=== PATIENT | female | born 1995 | race Caucasian/White ===

== ENCOUNTER 2020-11-13 19:57 | Emergency (ER) | payer OTHER, SELFPAY ==
[2020-11-13 20:04] VITALS: BP 142/92; PULSE 84; RESP 20; TEMP 36.7; O2SAT 100; BMI 22.4
[2020-11-13 20:10] VITALS: BP 134/72; PULSE 80; RESP 16; O2SAT 96
--- NOTE | 2020-11-13 20:10 | ECG_ITS ---
[facility] Test Date: 2020-11-13 Pat Name: Allyssa Benavidez Department: Room: Gender: Female Circle Beveler: : 1995 Requested By: Shobha Mabry Order Number: [id number] Alaina MD: Clarita Delvalle M.D. Measurements Intervals [place] Rate: 80 P: 73 MN: 141 QRS: 77 QRSD: 89 T: 55 QT: 373 QTc: 432 Interpretive Statements SINUS RHYTHM WITH SINUS ARRHYTHMIA MINIMAL VOLTAGE CRITERIA FOR LVH, CONSIDER NORMAL VARIANT [MEETS CRITERIA IN ONE OF: R(aVL), S(V1), R(V5), R(V5/V6)+S(V1)] INTERPRETATION BASED ON A DEFAULT AGE OF 40 YEARS No previous ECG available for comparison Electronically Signed On 11-14-2020 18:15:45 CDT by Clarita Delvalle M.D. [email or web address]
--- NOTE | 2020-11-13 20:10 | XR_ITS ---
WS: [id number] Exam: XR chest 1V portable [id number] Date/Time of Exam: 11/13/2020 8:21 PM Reason For Exam: cp No priors. The lungs are fully expanded. No infiltrates or pleural effusions. Normal cardiomediastinal structure s and bony elements. 1 cm soft tissue nodule projects over the left lower lung zone and probably repr esents a nipple shadow. A pulmonary nodule is not completely ruled out. Recommendations: Nonemergent repeat study with metallic nipple markers in place should be considered for follow-up. XR/XR chest 1V portable [id number] IMPRESSION: 1. 1 cm soft tissue nodule projects over the left lower lung zone most likely r epresents a nipple shadow however a pulmonary nodule could have similar appeara nce. Remaining aspects the chest are normal.
--- NOTE | 2020-11-13 20:25 | ED_ITS ---
HPI - Chest Pain General: Chief Complaint: Chest Pain Stated Complaint: CP/SOB Time Seen by Provider: 11/13/20 20:10 Source: patient Mode of arrival: ambulatory Limitations: no limitations History of Present Illness: HPI narrative: 25-year-old female states she been having episodic chest pain along with epigastric pain over the last 1 to 2 months. States that the same thing a year ago and had a HIDA scan that showed that her gallbladder was not functioning correctly. Patient states tonight she ate and then immediately started having epigastric pain that radiated to her ch est and back. She denies any vomiting. She states her pain has since improved. She denies any shortness of breath. Associated symptoms: Deny abdominal pain, dyspnea, fever(s), nausea or vomiting Review of Systems Const: Denies: fever(s), chills, body aches or change in appetite Eyes: Denies: blurry vision or eye discomfort ENMT: Denies: throat pain or dental pain Card: Reports: chest pain Resp: Denies: dyspnea GI: Denies: abdominal pain, nausea, vomiting or diarrhea : Denies: dysuria Musc: Denies: neck pain or back pain Skin/Breast: Denies: rash Neuro: Denies: headache(s) Psych: Denies: depression Beto/Lymph: Denies: easy bruising All/Imm: Denies: urticaria [facility] Female Reproductive History: Date of last menstrual period: 11/07/20 Physical Exam Const: COMMON NORMALS: no acute distress, patient oriented x3 and healthy appearing HENMT: COMMON NORMALS: normocephalic and atraumatic HEAD & SCALP: normocephalic and atraumatic Eye: COMMON NORMALS: Equal, round and reactive pupils present and EOMs intact bilaterally PUPIL: Yes Equal, round and reactive pupils present Neck/C-Spine: COMMON NORMALS: full ROM and supple Chest: COMMONS NORMALS: normal inspection of the chest and normal palpation of entire chest wall Resp: COMMON NORMALS: normal respiratory effort, No retractions, No use of accessory muscles and clear to auscultation bilaterally AUSCULTATION: clear to auscultation bilaterally Cardio: COMMON NORMALS: regular rate, regular rhythm and No murmurs present (Cardio) RATE: regular rate RHYTHM: regular rhythm GI: COMMON NORMALS: Normal to inspection, nondistended, normoactive bowel sounds present, Soft to palpation, non-tender and no masses PALPATION: Yes Soft to palpation Extremity: COMMON NORMALS: normal to inspection and full ROM Neuro: COMMON NORMALS: patient oriented x3, moves all extremities and no focal motor deficits Psych: COMMON NORMALS: mental status grossly normal, Normal thought process present and cooperative THOUGHT PROCESS: Normal thought process present Skin: COMMON NORMALS: no rashes or lesions noted and no wounds GENERAL SKIN EXAM: no rashes or lesions noted Course Vital Signs: Vital signs: Vital Signs Temperature 98.0 F 11/13/20 20:04 Pulse Rate 80 11/13/20 21:08 Respiratory Rate 24 H 11/13/20 21:08 Blood Pressure 134/85 11/13/20 21:08 Pulse Oximetry 100 11/13/20 21:08 MDM - Chest Pain MDM Narrative: Medical decision making narrative: Patient presents here with chest pain along with abdominal pain. This has been going on over months. She had a HIDA scan that was abnormal a year ago. Pain seems to be after eating and could be gastritis or her gallbladder. Patient's D-dimer here is negative. Blo od work and troponins negative as well. She is to follow-up with surgery outpatient return to the ER if worsening. She understands agrees to plan. Lab Data: Labs: Lab Results 11/13/20 11/13/20 11/13/20 Range/Units 20:32 20:32 20:32 WBC 8.3 (4.0-10.0) 10^3/ uL RBC 4.50 (4.1-5.3) 10^6/u L Hgb 12.6 (11.5-15.3) g/dL Hct 39.1 (37.0-47.0) % MCV 86.9 (81-99) fL MCH 28.0 (28.0-34.0) pg MCHC 32.2 (30.0-36.0) g/dL RDW 12.8 (12.1-15.1) % Plt Count 338 (130-400) 10^3/c mm MPV 9.1 (7.4-10.4) fL Neut % (Auto) 48.4 % Lymph % (Auto) 41.9 % [place] % (Auto) 7.8 % Eos % (Auto) 1.2 % Baso % (Auto) 0.6 % Neut # (Auto) 4.03 (1.8-7.7) 10^3/u L Lymph # (Auto) 3.5 (0.8-4.8) 10^3/u L [place] # (Auto) 0.7 (0.2-0.9) 10^3/u L Eos # (Auto) 0.1 (0.0-0.8) 10^3/u L Baso # (Auto) 0.1 (0.0-0.1) 10^3/u L Nucleated RBC % (a uto) 0 % Nucleated RBCs # 0.0 /100WBC D-Dimer (0-0.59) ug/mIFE U Sodium 139 (136-145) mmol/L Potassium 3.7 (3.5-5.1) mmol/L Chloride 104 (98-107) mmol/L Carbon Dioxide 25 (22-29) mmol/L Anion Gap 13.7 (5-19) BUN 18 (6-20) mg/dL Creatinine 0.6 (0.5-0.9) mg/dL GFR Calculation 120.8 (90-130) mL/min Glucose 91 (65-115) mg/dL Calculated Osmolal ity 289 (285-295) mOsm/k g Calcium 8.8 (8.5-10.5) mg/dL Total Bilirubin 0.2 (0.15-1.2) mg/dL AST 21 (0-32) U/L ALT 15 (0-33) U/L Alkaline Phosphata se 55 (35-105) IU/L Troponin T Baselin e 6 (0-10) ng/L Total Protein 6.8 (6.6-8.7) g/dL Albumin 4.4 (3.5-5.2) g/dL Globulin 2.4 (1.3-4.6) g/dL 11/13/ Range/Units 20:32 WBC (4.0-10.0) 10^3/ uL RBC (4.1-5.3) 10^6/u L Hgb (11.5-15.3) g/dL Hct (37.0-47.0) % MCV (81-99) fL MCH (28.0-34.0) pg MCHC (30.0-36.0) g/dL RDW (12.1-15.1) % Plt Count (130-400) 10^3/c mm MPV (7.4-10.4) fL Neut % (Auto) % Lymph % (Auto) % [place] % (Auto) % Eos % (Auto) % Baso % (Auto) % Neut # (Auto) (1.8-7.7) 10^3/u L Lymph # (Auto) (0.8-4.8) 10^3/u L [place] # (Auto) (0.2-0.9) 10^3/u L Eos # (Auto) (0.0-0.8) 10^3/u L Baso # (Auto) (0.0-0.1) 10^3/u L Nucleated RBC % (a uto) % Nucleated RBCs # /100WBC D-Dimer <= 0.27 (0-0.59) ug/mIFE U Sodium (136-145) mmol/L Potassium (3.5-5.1) mmol/L Chloride (98-107) mmol/L Carbon Dioxide (22-29) mmol/L Anion Gap (5-19) BUN (6-20) mg/dL Creatinine (0.5-0.9) mg/dL GFR Calculation (90-130) mL/min Glucose (65-115) mg/dL Calculated Osmolal ity (285-295) mOsm/k g Calcium (8.5-10.5) mg/dL Total Bilirubin (0.15-1.2) mg/dL AST (0-32) U/L ALT (0-33) U/L Alkaline Phosphata se (35-105) IU/L Troponin T Baselin e (0-10) ng/L Total Protein (6.6-8.7) g/dL Albumin (3.5-5.2) g/dL Globulin (1.3-4.6) g/dL Imaging Data^: CXR: Attestation: I personally reviewed and interpreted this imaging study as follows: My impression: no acute abnormality EKG Data^: EKG 1: Attestation: I personally reviewed and interpreted this EKG as follows: EKG interpretation date: 11/13/20 EKG interpretation time: 20:20 Interpretation: nsr hr [address] or t wave abnormalities qrs 89 qtc 409 Discharge Plan Discharge Patient Disposition: Home Clinical Impression: Chest pain Qualifiers: Chest pain type: unspecified Qualified Code(s): R07.9 - Chest pain, unspecified Abdominal pain Qualifiers: Abdominal location: epigastric Qualified Code(s): R10.13 - Epigastric pain Condition: Stable Prescriptions: New Protonix 40 mg tablet,delayed release (DR/EC) 40 mg PO DAILY Qty: 60 RF: 0 No Action folic acid 1 mg tablet 1 mg PO DAILY@20 RF: 0 norgestimate-ethinyl estradiol [Tri-Previfem (28)] 0.18/0.215/0.25 mg-35 mcg (28) tablet 1 tab PO DAILY@20 RF: 0 PNV cmb#95-ferrous fumarate-FA [ Multivitamins] 28 mg iron- 800 mcg Tablet 1 tab PO DAILY@20 RF: 0 Discharge Orders: Discharge ED (Routine); Ordered 11/13/20 Ordered By: Shobha Mabry Referrals: Fabio Florez MD [Physician] - 1-3 days Valentina Neville [Primary Care Provider] - Discharge Diet: Advance as tolerated Discharge Activity: Resume usual activity Patient Instructions: Abdominal Pain (ED) Coding Level of Care Code ED Clinical Rn Liaison for Chg Fwd Exam Comprehensive
[2020-11-13 20:38] LABS: Basophils # 0.1 10^3/uL (0.0-0.1); Basophils % 0.6 %; Eosinophils # 0.1 10^3/uL (0.0-0.8); Eosinophils % 1.2 %; Hematocrit 39.1 % (37.0-47.0); Hemoglobin 12.6 g/dL (11.5-15.3); Lymphocytes # 3.5 10^3/uL (0.8-4.8); Lymphocytes % 41.9 %; Mean Corpuscular HGB Conc 32.2 g/dL (30.0-36.0); Mean Corpuscular Volume 86.9 fL (81-99); Mean Platelet Volume 9.1 fL (7.4-10.4); Monocytes # 0.7 10^3/uL (0.2-0.9); Monocytes % 7.8 %; Neutrophils # 4.03 10^3/uL (1.8-7.7); Neutrophils % 48.4 %; Nucleated Red Blood Cells % 0 %; Platelet Count 338 10^3/cmm (130-400); Red Cell Distribution Width 12.8 % (12.1-15.1); White Blood Count 8.3 10^3/uL (4.0-10.0)
[2020-11-13 20:58] LABS: D Dimer <= 0.27 ug/mIFEU (0-0.59)
[2020-11-13 21:00] LABS: Alanine Aminotransferase 15 U/L (0-33); Albumin Level 4.4 g/dL (3.5-5.2); Alkaline Phosphatase 55 IU/L (35-105); Anion Gap 13.7 (5-19); Aspartate Amino Transferase 21 U/L (0-32); Blood Urea Nitrogen 18 mg/dL (6-20); Calcium 8.8 mg/dL (8.5-10.5); Carbon Dioxide 25 mmol/L (22-29); Chloride 104 mmol/L (98-107); Globulin 2.4 g/dL (1.3-4.6); Glomerular Filtration Rate 120.8 mL/min (90-130); Glucose 91 mg/dL (65-115); Osmolality Calculated 289 mOsm/kg (285-295); Potassium 3.7 mmol/L (3.5-5.1); Sodium 139 mmol/L (136-145); Total Bilirubin 0.2 mg/dL (0.15-1.2); Total Protein 6.8 g/dL (6.6-8.7)
[2020-11-13 21:01] LABS: Troponin(5th) Baseline 6 ng/L (0-10)
[2020-11-13 21:08] VITALS: BP 134/85; PULSE 80; RESP 24; O2SAT 100
[2020-11-13] MEDS: sodium chloride 0.9% 1,000 ML 999 ML IV (21:15)
[2020-11-13 21:30] VITALS: BP 140/85; PULSE 85; RESP 20; O2SAT 98
[2020-11-13] MEDS: HYDROcodone-acetaminophen 5-325 mg Tablet 1 TAB PO (22:05)
[2020-11-13 22:06] VITALS: BP 112/69; PULSE 72; RESP 14; TEMP 36.7; O2SAT 98
--- NOTE | 2020-11-17 08:06 | DCPLANNER ---
manager business systems had message to schedule a follow up appointment for patient with general surgery. manager business systems emailed patients information to both Charla and Itzel at [facility] General Surgery. Patients information will be printed and reviewed. Clinic will call patient with appointment information.
--- NOTE | 2020-11-21 11:43 | DCPLANNER ---
assistant accounting manager emailed Dinesh at general surgery to confirm if an appointment had been scheduled for patient. assistant accounting manager was told that they were unable to reach patient at this time to accept patient. assistant accounting manager called phone number [phone], unable to speak with patient at this time, a voicemail was left for patient to return residential case manager phone call.
--- NOTE | 2020-11-25 07:56 | DCPLANNER ---
orchard manager was notified that patient declined appointment at this time.
== END 2020-11-13 22:13 | disposition home or self-care (01) ==
PROVIDERS: Emergency Provider Emergency Medicine; PCP Nurse Practitioner Family
DX: R07.9 Chest pain, unspecified (principal); R10.13 Epigastric pain
CPT/HCPCS: 71045; 80053; 84484; 85025; 85378; 93005; 96360; 99284; J7030

== ENCOUNTER 2022-05-21 15:35 | Emergency (ER) | payer SELFPAY ==
[2022-05-21 15:44] VITALS: BMI 23.3
[2022-05-21 15:51] VITALS: BP 118/79; PULSE 68; RESP 17; O2SAT 98
--- NOTE | 2022-05-21 16:01 | ED_ITS ---
HPI - General Adult General: Chief complaint: Vaginal Bleeding Stated complaint: vaginal bleeding/clots Time Seen by Provider: 05/21/22 16:00 History of Present Illness: Patient is a 26-year-old female with prior history of currently on OCP presents emergency room with concerns of heavy vaginal bleeding passage of clots last 7 days. Patient tells me that symptoms started 7 days ago despite being on her OCP. Patient tells me in the past she has regular periods while on her OCP but never bleeding for more than 3 to 4 days. However patient has had 7 days of nonstop heavy bleeding. Patient denies any family history of coagulopathy. Patient denies any personal history of coagulopathy. Patient denies any history of fibroids. Patient does not think that she is currently . Denies nausea/vomiting, fever/chill, chest pain, shortness of breath, abdominal pain, dysuria/hematuria/polyuria, diarrhea/melena/hematochezia. Onset:7 days ago Duration:7 days Location: home Severity:moderate Associated symptoms: Deny chest pain, dyspnea, nausea, rash, palpitations or vomiting Review of Systems Const: Denies: fever(s) or chills Eyes: Denies: change in vision ENMT: Denies: mouth pain Card: Denies: chest pain or palpitations Resp: Denies: dyspnea or non-productive cough GI: Denies: abdominal pain, nausea, vomiting or diarrhea : Reports: other (+vaginal bleeding/passage of clots); Denies: dysuria Musc: Denies: extremity pain Skin/Breast: Denies: rash or new lesions Neuro: Denies: weakness in extremities Psych: Reports: other (Normal mood) Beto/Lymph: Denies: easy bruising PFSH ED PFSH: Medical History Social History Smoking and tobacco status: never smoked Alcohol intake: never Substance/Drug Use: never Physical Exam Const: COMMON NORMALS: alert HENMT: COMMON NORMALS: atraumatic HEAD & SCALP: atraumatic MOUTH: moist mucous membranes not abnormal Eye: COMMON NORMALS: EOMs intact bilaterally and conjunctivae normal CONJUNCTIVA: Yes conjunctivae normal Neck/C-Spine: COMMON NORMALS: full ROM and supple Resp: COMMON NORMALS: normal respiratory effort and clear to auscultation bilaterally AUSCULTATION: clear to auscultation bilaterally Cardio: COMMON NORMALS: regular rate RATE: regular rate GI: COMMON NORMALS: Soft to palpation and non-tender PALPATION: Yes Soft to palpation OTHER: No focal TTP. NO guarding rebound, guarding, rigidity. No CVA tenderness to percussion. Neg Garcia/Neg McBurney's point tenderness, no suprabupic tenderness to palpation. : OTHER: External genitalia wnl. No erythema around cervical os, +mild blood in the vaginal vault, os closed, no discharge, no bleeding. No CMT, no adnexal tenderness. Extremity: COMMON NORMALS: full ROM Neuro: SENSORIUM/ORIENTATION: Yes alert MOTOR EXAM: No Abnormal motor strength present and Other motor observations present (no focal motor deficits) Psych: COMMON NORMALS: speech normal SPEECH: Yes normal speech MOOD & AFFECT: Yes euthymic mood Course Vital Signs: Vital signs: Vital Signs Pulse Rate 68 05/21/22 15:51 Respiratory Rate 17 05/21/22 15:51 Blood Pressure 118/79 05/21/22 15:51 Pulse Oximetry 98 05/21/22 15:51 Oxygen Delivery Me thod 05/21/22 15:51 MDM - General Adult Medical Decision Making Patient is a 26-year-old female with prior history of currently on OCP presents emergency room with concerns of heavy vaginal bleeding passage of clots last 7 days. On exam, patient is hemodynamically stable. Patient has mild blood in vaginal vault. Hemoglobin appears to be stable today. Ultrasound did not show any focal pathology. There is no signs of active extravasation on pelvic exam. Patient's negative today. I have given patient follow up with our protective services case worker to be seen by our outpatient by Dr. Mendes for concerns of heavy vaginal bleeding. Patient aware of a call from our protective services case worker to schedule for appointment(s) and verbalizes understanding of the importance of following up. Rx ibuprofen for abnormal uterine bleeding Disposition: Discharge. Patient counseled regarding diagnostic impression, treatment plan. Patient given ED strict return precautions to return for continuation, worsening, or development of new symptoms. Instructed to f/u w/ Dr. Palafox regarding symptoms today. Patient verbalized understanding. Lab Data : 05/21/22 16:30 05/21/22 16:30 Radiology Impressions Transvaginal US 05/21/22 16:30 IMPRESSION: No acute findings. Laboratory Results WBC 8.7 10^3/uL (4.0-10.0) 05/21/22 16:30 RBC 4.43 10^6/uL (4.1-5.3) 05/21/22 16:30 Hgb 12.7 g/dL (11.5-15.3) 05/21/22 16:30 Hct 38.6 % (37.0-47.0) 05/21/22 16:30 MCV 87.1 fl (81-99) 05/21/22 16:30 MCH 28.7 pg (28.0-34.0) 05/21/22 16:30 MCHC 32.9 g/dL (30.0-36.0) 05/21/22 16:30 RDW 12.4 % (12.1-15.1) 05/21/22 16:30 Plt Count 342 10^3/cmm (130-400) 05/21/22 16:30 MPV 9.2 fL (7.4-10.4) 05/21/22 16:30 Neut % (Auto) 67.3 % 05/21/22 16:30 Lymph % (Auto) 24.3 % 05/21/22 16:30 [place] % (Auto) 6.8 % 05/21/22 16:30 Eos % (Auto) 1.0 % 05/21/22 16:30 Baso % (Auto) 0.3 % 05/21/22 16:30 Neut # (Auto) 5.86 10^3/uL (1.8-7.7) 05/21/22 16:30 Lymph # (Auto) 2.1 10^3/uL (0.8-4.8) 05/21/22 16:30 [place] # (Auto) 0.6 10^3/uL (0.2-0.9) 05/21/22 16:30 Eos # (Auto) 0.1 10^3/uL (0.0-0.8) 05/21/22 16:30 Baso # (Auto) 0.0 10^3/uL (0.0-0.1) 05/21/22 16:30 Nucleated RBC % (auto) 0 % 05/21/22 16:30 Nucleated RBCs # 0.0 /100WBC 05/21/22 16:30 PT 13.30 SECONDS (12.1-14.9) 05/21/22 16:30 INR 0.98 (0.8-1.2) 05/21/22 16:30 APTT 27.4 SECONDS (23.9-36.7) 05/21/22 16:30 Sodium 135 mmol/L (136-145) L 05/21/22 16:30 Potassium 3.7 mmol/L (3.5-5.1) 05/21/22 16:30 Chloride 99 mmol/L (98-107) 05/21/22 16:30 Carbon Dioxide 25 mmol/L (22-29) 05/21/22 16:30 Anion Gap 14.7 (5-19) 05/21/22 16:30 BUN 12 mg/dL (6-20) 05/21/22 16:30 Creatinine 0.6 mg/dL (0.5-0.9) 05/21/22 16:30 GFR Calculation 119.9 mL/min (90-130) 05/21/22 16:30 Glucose 88 mg/dL (65-115) 05/21/22 16:30 Calculated Osmolality 279 mOsm/kg (285-295) L 05/21/22 16:30 Calcium 9.2 mg/dL (8.5-10.5) 05/21/22 16:30 Total Bilirubin 0.2 mg/dL (0.15-1.2) 05/21/22 16:30 AST 15 U/L (0-32) 05/21/22 16:30 ALT 9 U/L (0-33) 05/21/22 16:30 Alkaline Phosphatase 70 U/L (35-105) 05/21/22 16:30 Total Protein 7.2 g/dL (6.6-8.7) 05/21/22 16:30 Albumin 4.4 g/dL (3.5-5.2) 05/21/22 16:30 Globulin 2.8 g/dL (1.3-4.6) 05/21/22 16:30 Lipase 21 U/L (13-60) 05/21/22 16:30 HCG, Qual Negative (Negative) 05/21/22 17:48 Urine Color Yellow (Yellow) 05/21/22 17:48 Urine Appearance Clear (CLEAR) 05/21/22 17:48 Urine pH 5.5 (5-7) 05/21/22 17:48 Ur Specific [place] >= 1.030 (1.005-1.030) 05/21/22 17:48 Urine Protein Negative (Negative) 05/21/22 17:48 Urine Glucose (UA) Negative (Normal) 05/21/22 17:48 Urine Ketones Trace (Negative) A 05/21/22 17:48 Urine Blood Moderate (Negative) A 05/21/22 17:48 Urine Nitrate Negative 05/21/22 17:48 Urine Bilirubin Negative (Negative) 05/21/22 17:48 Urine Urobilinogen 0.2 mg/dL (Negative) 05/21/22 17:48 Ur Leukocyte Esterase Negative (Negative) 05/21/22 17:48 Imaging Data Other Imaging: Radiologist's impression: [place] [address] Ultrasound Report Signed Patient: Allyssa Benavidez Unit #: [id number] : 1995 Age/Sex: 26 / F ADM Date: 05/21/22 Loc: ER Room/Bed: Attending Dr: Ordering Provider/Ordering MD: Shelbi Sellers MD Date of Service: 05/21/22 Procedure(s): US transvaginal [id number] Accession Number(s): [id number] Report Number: [id number] PROCEDURE INFORMATION: Exam: US Pelvis, Transvaginal Exam date and time: 05/21/2022 4:46 PM Age: 26 years old Clinical indication: Other: Heavy vag bleed; Additional info: Heavy vaginal bleeding TECHNIQUE: Imaging protocol: Real-time transvaginal pelvic ultrasound with image documentation. Transvaginal imaging was used for better evaluation of the endometrium, adnexa, and/or cervix. COMPARISON: US pelvic complete* [id number] 05/18/2022 2:33 PM FINDINGS: Uterus: Uterus measures 7.4 x 3.5 x 4.1 cm. No uterine mass. Endometrial stripe measures 3 mm in thickness. Nabothian cysts noted in the cervix. Right ovary/adnexa: Right ovary measures 2.1 x 2.0 x 1.9 cm. No mass. Normal ovarian blood flow. Left ovary/adnexa: Left ovary measures 1.6 x 1.8 x 2.2 cm. No mass. Normal ovarian blood flow. Intraperitoneal space: No free fluid. US/ transvaginal [id number] IMPRESSION: No acute findings. ? Dictated By: Wesley Rocha DO Signed By: Wesley Rocha DO Signed Date/Time: 05/21/22 173 DD/ 1646 Discharge Plan Discharge Patient Disposition: Home Clinical Impression: Heavy menstrual period Condition: Stable Prescriptions: New ibuprofen 200 mg tablet 200 mg PO Q6H Qty: 20 0RF No Action norgestimate-ethinyl estradiol 0.18/0.215/0.25 mg-35 mcg (28) tablet 1 tab PO DAILY Discharge Orders: Discharge ED (Routine); Ordered 05/21/22 Ordered By: Shelbi Sellers Referrals: Castro Mendes MD [Primary Care Provider] - Discharge Diet: Advance as tolerated Discharge Activity: Increase activity as tolerated Activity Restrictions/Additional Instructions: Our protective services case worker will have you follow-up with our gynecology provider Dr. Palafox in the next few days. You would be expected to have a phone call with our protective services case worker who will put you on the schedule. You can expect a call from us in the next 2-3 days. If you don't hear from us, call us back in the emergency room at [phone]. Come back if you have any new or concerning issues including worsening/non-stop bleeding, cramps, or new vaginal discharge. Coding Level of Care Code ED Strategy Execution Consultant for [employer] Fwd Exam Comprehensive
--- NOTE | 2022-05-21 16:30 | USR_ITS ---
PROCEDURE INFORMATION: Exam: US Pelvis, Transvaginal Exam date and time: 05/21/2022 4:46 PM Age: 26 years old Clinical indication: Other: Heavy vag bleed; Additional info: Heavy vaginal bleeding TECHNIQUE: Imaging protocol: Real-time transvaginal pelvic ultrasound with image documentation. Transvaginal imaging was used for better evaluation of the endometrium, adnexa, and/or cervix. COMPARISON: US pelvic complete* [id number] 05/18/2022 2:33 PM FINDINGS: Uterus: Uterus measures 7.4 x 3.5 x 4.1 cm. No uterine mass. Endometrial stripe measures 3 mm in thickness. Nabothian cysts noted in the cervix. Right ovary/adnexa: Right ovary measures 2.1 x 2.0 x 1.9 cm. No mass. Normal ovarian blood flow. Left ovary/adnexa: Left ovary measures 1.6 x 1.8 x 2.2 cm. No mass. Normal ovarian blood flow. Intraperitoneal space: No free fluid. US/US transvaginal [id number] IMPRESSION: No acute findings.
[2022-05-21 16:52] LABS: Basophils % 0.3 %; Eosinophils # 0.1 10^3/uL (0.0-0.8); Hematocrit 38.6 % (37.0-47.0); Hemoglobin 12.7 g/dL (11.5-15.3); INR 0.98 (0.8-1.2); Lymphocytes # 2.1 10^3/uL (0.8-4.8); Lymphocytes % 24.3 %; Mean Corpuscular HGB Conc 32.9 g/dL (30.0-36.0); Mean Corpuscular Hemoglobin 28.7 pg (28.0-34.0); Mean Corpuscular Volume 87.1 fl (81-99); Mean Platelet Volume 9.2 fL (7.4-10.4); Monocytes # 0.6 10^3/uL (0.2-0.9); Monocytes % 6.8 %; Neutrophils # 5.86 10^3/uL (1.8-7.7); Neutrophils % 67.3 %; Nucleated Red Blood Cells % 0 %; Platelet Count 342 10^3/cmm (130-400); Red Blood Count 4.43 10^6/uL (4.1-5.3); Red Cell Distribution Width 12.4 % (12.1-15.1); White Blood Count 8.7 10^3/uL (4.0-10.0)
[2022-05-21 16:53] LABS: Partial Thromboplastin Time 27.4 SECONDS (23.9-36.7)
[2022-05-21 17:00] LABS: Alanine Aminotransferase 9 U/L (0-33); Albumin Level 4.4 g/dL (3.5-5.2); Alkaline Phosphatase 70 U/L (35-105); Anion Gap 14.7 (5-19); Aspartate Amino Transferase 15 U/L (0-32); Blood Urea Nitrogen 12 mg/dL (6-20); Calcium 9.2 mg/dL (8.5-10.5); Carbon Dioxide 25 mmol/L (22-29); Chloride 99 mmol/L (98-107); Globulin 2.8 g/dL (1.3-4.6); Glomerular Filtration Rate 119.9 mL/min (90-130); Glucose 88 mg/dL (65-115); Lipase 21 U/L (13-60); Osmolality Calculated 279 mOsm/kg (285-295); Potassium 3.7 mmol/L (3.5-5.1); Sodium 135 mmol/L (136-145); Total Bilirubin 0.2 mg/dL (0.15-1.2); Total Protein 7.2 g/dL (6.6-8.7)
[2022-05-21 17:56] LABS: HCG Qualitative Urine. Negative (Negative)
[2022-05-21 17:59] LABS: Add Urine Microscopic? NO; Charge for UA Resulting for Rev
[2022-05-21 18:00] LABS: Bilirubin Urine Negative (Negative); Blood Urine Moderate (Negative); Glucose Urine UA Negative (Normal); Ketones Urine Trace (Negative); Leukocyte Esterase Urine Negative (Negative); Nitrate Urine Negative; Protein Urine Negative (Negative); Specific Gravity, Urine >= 1.030 (1.005-1.030); Urine Appearance Clear (CLEAR); Urine Color Yellow (Yellow); Urobilinogen Urine 0.2 mg/dL (Negative); pH Urine 5.5 (5-7)
[2022-05-21 18:38] VITALS: BP 112/68; PULSE 68; RESP 14; TEMP 36.9; O2SAT 99
--- NOTE | 2022-05-24 11:52 | DCPLANNER ---
Addendum entered by Pamela Drake 05/26/22 15:02: events manager had a message to schedule a follow up appointment with Dr. Mendes at [facility]. events manager spoke with patient she stated that she would like to see Dr. Mendes, patient stated that she would call and make the appointment. Original Note: events manager had message to schedule a follow [facility] for [facility] with [facility]. events manager sent patients information to the front office staff at [facility]. Patients information will be printed and reviewed. Clinic will call patient with appointment information.
== END 2022-05-21 18:55 | disposition home or self-care (01) ==
PROVIDERS: Emergency Provider Emergency Medicine; PCP Family Medicine
DX: N92.0 Excessive and frequent menstruation with regular cycle (principal)
CPT/HCPCS: 76830; 80053; 81003; 81025; 83690; 85025; 85610; 85730; 99284